=== PATIENT | female | born 1960 | race Hispanic/Latino ===

== ENCOUNTER 2019-08-25 06:22 | Day surgery (SDC) | payer BC ==
[~2019-08-25] VITALS: Ht 152.4 cm; Wt 60.3 kg
[2019-08-25 07:01] VITALS: BP 132/70
[2019-08-25] MEDS ORDERED: SODIUM CHLORIDE 0.9% 1000ML 1,000 ML IV ONE (07:04)
[2019-08-25] MEDS ORDERED: PROPOFOL 10 MG/ML 20ML VIAL IV ONE (07:49)
[2019-08-25 08:18] VITALS: BP 102/63
[2019-08-25 08:23] VITALS: BP 108/65
[2019-08-25 08:28] VITALS: BP 105/63
== END 2019-08-25 08:48 | disposition home or self-care (01) ==
LOC: DAH 06:22 → ENDO 06:22
PROVIDERS: ATTEND Internal Medicine Gastroenterology
DX: Z12.11 Encounter for screening for malignant neoplasm of colon (principal); K62.1 Rectal polyp; K63.5 Polyp of colon; K29.50 Unspecified chronic gastritis without bleeding; B96.81 Helicobacter pylori [H. pylori] as the cause of diseases classified elsewhere; K57.30 Diverticulosis of large intestine without perforation or abscess without bleeding; K31.89 Other diseases of stomach and duodenum; I10 Essential (primary) hypertension
CPT/HCPCS: 43239; 45380; A4215; A4221; A4222; A4223; A4606; A4620; A4663; J2704; J7030